=== PATIENT | male | born 2000 | race Caucasian/White ===

== ENCOUNTER 2022-06-21 10:29 | Emergency (ER) | payer MEDICAID ==
[2022-06-21] MEDS ORDERED: DOXYCYCLINE100 MG PO (11:02)
[2022-06-21 11:24] VITALS: BP 135/77
== END 2022-06-21 11:41 | disposition home or self-care (01) ==
LOC: ED 10:29
DX: I88.9 Nonspecific lymphadenitis, unspecified (principal)